=== PATIENT | female | born 1955 ===

== ENCOUNTER 2024-06-10 06:08 | Day surgery (SDC) | payer OTHER ==
[~2024-06-10 06:08] MED LIST: COZAAR100 MG PO; SINEMET 25-1001 EACH PO; [UNRECOGNIZED DRUG - OTHER]
[2024-06-10] MEDS ORDERED: LIDOCAINE HCL 1% 20 ML VIAL IJ ONE (08:28)
[2024-06-10] MEDS ORDERED: GENTAMICIN SULFATE 40 MG/ML VIAL ONE (08:28)
[2024-06-10] MEDS ORDERED: CEFAZOLIN SODIUM 1,000 MG VIAL ONE ×2 (08:37→08:54)
[2024-06-10] MEDS ORDERED: CHLORHEXIDINE GLUCONATE 120 ML BOTTLE TOP ONE (09:30)
[2024-06-10] MEDS ORDERED: TRAM1TAB98 PO (10:14)
[2024-06-10] MEDS ORDERED: MACROBID 100 M100 MG PO (10:14)
== END 2024-06-10 16:25 | disposition home or self-care (01) ==
LOC: CIR.AMB 06:08
PROVIDERS: ATTEND Obstetrics & Gynecology Gynecology
DX: N81.5 Vaginal enterocele (principal); N81.6 Rectocele; N81.11 Cystocele, midline; N81.82 Incompetence or weakening of pubocervical tissue; N81.83 Incompetence or weakening of rectovaginal tissue; I10 Essential (primary) hypertension